=== PATIENT | female | born 1965 | race African-American/Black ===

== ENCOUNTER 2017-08-29 22:03 | Inpatient (IN) | payer OTHER ==
[~2017-08-29] VITALS: Ht 170.2 cm; Wt 90.9 kg
[~2017-08-29 22:03] MED LIST: BACTRIM,SEPT1 TABLET PO; CELECOXIB200 MG PO; CENTRUM SILVER1 EAC4 PO; ENDOCET 5-3251 EACH PO; FEOSOL325 MG PO; IRON325 M1 PO; LITE COAT ASPI325 M1 PO; LOVENOX40 MG/0.4 SC; MOBIC15 MG PO; MORPHINE SULFAT15 M1 PO; MOTRIN400 MG PO; MULTIVITAMIN1 EAC1 PO; NAPROSYN500 MG PO; NEURONTIN100 MG PO; NOHOMEMEDS; OXYCODONE HCL5 MG PO; OXYCODONE-APAP1 EACH PO; OXYCONTIN10 MG PO; PERCOCET 5-3251 EACH PO; PERCOCET 5/31 TABLET PO; SUPER B COMP1 TABLET PO; ZOCOR20 MG PO
[2017-08-30 07:24] VITALS: BP 125/78
[2017-08-30 11:49] LABS: HEMATOCRIT 44.6 % (36.0-46.0); MCH 30.6 PG (29.0-34.0); MCHC 31.4 G/DL (30.0-36.0); MCV 97.4 FL (83-99); MEAN PLAT.VOLUME 9.6 uM^3 (9.5-12.4); PLATELET COUNT 230 K/uL (156-360); RBC DIS.WIDTH-CV 12.8 % (11.8-14.6); RBC DIS.WIDTH-SD 45.4 % (39-53); RED BLOOD COUNT 4.58 M/uL (3.80-5.20); WHITE BLOOD COUNT 6.1 K/uL (4.1-10.2)
[2017-08-30 13:13] VITALS: BP 162/79
[2017-08-30 15:57] VITALS: BP 178/94
[2017-08-30 19:56] VITALS: BP 184/92
[2017-08-30 23:55] VITALS: BP 155/77
[2017-08-31 04:10] VITALS: BP 175/89
[2017-08-31 07:19] LABS: HEMATOCRIT 36.9 % (36.0-46.0); MCV 95.1 FL (83-99)
[2017-08-31 07:23] LABS: ANION GAP 6 MEQ/L (2-14); CHLORIDE 104 MEQ/L (99-109); GFR ESTIMATE (CALCULATED) > 59 mL/min/; GLUCOSE 127 mg/dL (70-99); SAMPLE HEMOLYSIS CHECK 0; SAMPLE ICTERIC CHECK 0; SAMPLE LIPEMIA CHECK 0; SODIUM 137 MEQ/L (136-147); UREA NITROGEN (BUN) 11 mg/dL (9-23)
[2017-08-31 11:59] VITALS: BP 185/93
[2017-08-31] MEDS ORDERED: ENDOCET 5-3251 EACH PO (14:08)
[2017-08-31] MEDS ORDERED: LOVENOX40 MG/0.4 SC (14:08)
[2017-08-31] MEDS ORDERED: OXYCONTIN10 MG PO (14:08)
[2017-08-31 15:50] VITALS: BP 178/85
[2017-08-31 20:10] VITALS: BP 157/80
[2017-09-01 00:30] VITALS: BP 160/76
[2017-09-01 04:18] VITALS: BP 150/75
[2017-09-01 05:29] LABS: HEMATOCRIT 34.6 % (36.0-46.0)
[2017-09-01 08:00] VITALS: BP 140/79
[2017-09-01] MEDS ORDERED: OXYCODONE-APAP1 EACH PO (08:15)
[2017-09-01] MEDS ORDERED: GABAPENTIN100 MG PO (08:15)
[2017-09-01 11:45] VITALS: BP 148/73
[2017-09-01] MEDS ORDERED: PERCOCET 10/1 TABLET PO (12:47)
== END 2017-09-01 14:49 | DRG 470 ==
LOC: ENRESERV 22:03 → 2SOUTH 08-30 06:59 → 3WEST 08-30 13:12 → 2SOUTH 08-30 14:36 → 3WEST 09-01 14:49
PROVIDERS: Orthopaedic Surgery
PROC: 0SRD0J9 Replacement of Left Knee Joint with Synthetic Substitute, Cemented, Open Approach (ICD-10-PCS; principal; 2017-08-30)
DX: M17.0 Bilateral primary osteoarthritis of knee (principal); I10 Essential (primary) hypertension; E88.81 Metabolic syndrome and other insulin resistance; E78.5 Hyperlipidemia, unspecified; M24.662 Ankylosis, left knee; G47.00 Insomnia, unspecified; F17.210 Nicotine dependence, cigarettes, uncomplicated; G89.29 Other chronic pain; Z68.31 Body mass index [BMI] 31.0-31.9, adult; Z79.899 Other long term (current) drug therapy; Z96.651 Presence of right artificial knee joint
CPT/HCPCS: 73560; 80048; 85014; 85018; 85027; 93971; C1713; J0690; J1170; J1650; J2250; J2405; J3010; J7030; J7050